=== PATIENT | male | born 1945 | race Caucasian/White ===

== ENCOUNTER 2018-04-27 23:20 | Inpatient (IN) | payer OTHER ==
[~2018-04-27] VITALS: Ht 167.6 cm; Wt 77.1 kg
[2018-04-27] MEDS ORDERED: PRINIVIL5 MG (23:34)
[2018-04-27] MEDS ORDERED: GLIPIZIDE ER10 MG (23:34)
[2018-05-06] MEDS ORDERED: PRINIVIL5 MG PO (09:47)
[2018-05-06] MEDS ORDERED: DOXYCYCLINE HY100 M2 PO (09:47)
== END 2018-05-06 11:02 | disposition home or self-care (01) | DRG 155 ==
LOC: ER 23:20 → EDBD 23:21 → ER 23:21 → MEDJ 04-28 17:16 → MEDI 04-28 17:16
PROVIDERS: ADMIT Internal Medicine
PROC: BB24ZZZ Computerized Tomography (CT Scan) of Bilateral Lungs (ICD-10-PCS; principal; 2018-04-28)
PROC: B54MZZZ Ultrasonography of Right Upper Extremity Veins (ICD-10-PCS; 2018-04-28)
PROC: B54DZZZ Ultrasonography of Bilateral Lower Extremity Veins (ICD-10-PCS; 2018-04-28)
DX: K11.1 Hypertrophy of salivary gland (principal); E87.1 Hypo-osmolality and hyponatremia; R65.10 Systemic inflammatory response syndrome (SIRS) of non-infectious origin without acute organ dysfunction; R59.0 Localized enlarged lymph nodes; E86.0 Dehydration